=== PATIENT | male | born 1945 | race Caucasian/White ===

== ENCOUNTER → 2016-11-29 14:48 | Outpatient (CLI) | payer MEDICARE, BC | END | disposition home or self-care (01) | LOC: D.LAB 14:48 | DX: Z12.5 Encounter for screening for malignant neoplasm of prostate (principal) ==

== ENCOUNTER 2017-12-19 13:55 | Inpatient (IN) | payer MEDICARE, BC ==
[2017-12-19] VITALS (11 sets, daily range): BP systolic 120–139; BP diastolic 61–74; BMI 27.7
[~2017-12-19] VITALS: Ht 182.9 cm; Wt 93.4 kg
--- NOTE | ~2017-12-19 | OP ---
PATIENT NAME: GUS MCCONNELL MEDICAL RECORD: [id number] :[birth year] LOCATION:D.M2 D.2129 ADMISSION DATE:12/19/17 SURGEON: GABRIEL JACOB MD DATE OF OPERATION: 12/20/2017 PREOPERATIVE DIAGNOSES: 1. Incomplete left bundle-branch block. 2. Obstructive sleep apnea. 3. Hyperlipidemia. 4. BPH. 5. Depression. 6. Obesity. POSTOPERATIVE DIAGNOSES: 1. Incomplete left bundle-branch block. 2. Obstructive sleep apnea. 3. Hyperlipidemia. 4. BPH. 5. Depression. 6. Obesity. PROCEDURE: Left subclavian vein dual lead pacemaker placement. SURGEON: Gabriel Jacob MD CO-SURGEON: Oliverio Sotelo MD REPORT OF PROCEDURE: The patient's left chest was prepped and draped in sterile fashion. A 25 mL of 1% lidocaine with epinephrine were infused into the surrounding tissues. A transverse incision was made in the left upper lateral chest and a subcutaneous pouch was made over the pectoral fascia. We accessed the left subclavian vein times 2 and guidewires were advanced with ease. Fluoro was used to note that the wires were in good position in the venous system. The dilator trocar devices were placed over the wires and the wires and dilators were removed. The 2 leads were inserted into the venous system. At this point, Dr. Sotelo positioned the leads appropriately in atrium and ventricle. Once the leads were noted to be functioning appropriately, then the trocars were removed. The leads were sutured down with 0 Ti-Crons and then affixed to the pacemaker. The pacemaker was placed into the subcutaneous pouch and sutured to the pectoral fascia using interrupted 0 Ti-Cron. The wound was irrigated out with antibiotic solution. We then reapproximated the subcutaneous tissues with interrupted 3-0 Vicryls, and the skin was closed with running subcutaneous 5-0 Monocryl. COMPLICATIONS: None. CONDITION: Stable. ANESTHESIA: Local MAC. BLOOD LOSS: Minimal. TRANSINT:[id number] Voice Confirmation ID: [id number] DOCUMENT ID: [id number] OPERATIVE REPORT [id number] GUS MCCONNELL GABRIEL JACOB MD CC: [id number] DICTATION DATE: 12/20/17 141 SKILLS INSTRUCTOR: 12/20/17 1422 ADM IN [id number] [place] [address]
--- NOTE | ~2017-12-19 | OP ---
PATIENT NAME: GUS MCCONNELL MEDICAL RECORD: [id number] :49 LOCATION:D.M2 D.2129 ADMISSION DATE:12/19/17 SURGEON: RICHMOND MARSHALL MD DATE OF OPERATION: 12/20/2017 PROCEDURE: Lead portion of permanent pacemaker placement. INDICATION: A complete heart block with sinus arrest. SURGEON: Gabriel Stevenson MD DESCRIPTION OF PROCEDURE: After the left subclavian was cannulated via modified Seldinger technique via Dr. Stevenson, first under fluoroscopic guidance, I placed the RV lead in the RV apex without difficulty. After adequate R waves and thresholds were obtained, again under fluoroscopic guidance, the right atrial lead was placed in right atrial appendage without difficulty. After adequate P waves and thresholds were obtained, leads were attached to the appropriate poles of the generator and pocket was closed via Dr. Stevenson. IMPRESSION: Successful lead portion of permanent pacemaker placement. ESTIMATED BLOOD LOSS: None. COMPLICATIONS: None noted. DISPOSITION: To the floor, stable. TRANSINT:[id number] Voice Confirmation ID: [id number] DOCUMENT ID: [id number] RICHMOND MARSHALL MD at 0843 CC: [id number] DICTATION DATE: 12/20/17 1342 AIR TOOL OPERATOR: 12/20/17 1353 DIS IN 12/21/17 [id number] [place] [address]
--- NOTE | ~2017-12-19 | HEMODYNAMI ---
PATIENT:GUS MCCONNELL MEDICAL RECORD: [id number] : 49 LOCATION:[address] ADMISSION DATE: 12/19/17 Generatedon:12/20/201713:50 Patient name: GUS MCCONNELL Patient #: [id number] SSN: : 1945 Date of study: 12/20/2017 Page: Of Hemodynamic Procedure Report Patient Data Patient Demographics Procedure consent was obtained First Name: GUS Gender: Male Last Name: JAYESH : 1945 [facility] Initial: Cassius Age: 72 year(s) Patient #: [id number] Race: Unknown Additional ID: [id number] Contact details Address: [address] [place] [address] State: [place] City: [facility] Zip code: [address] Admission Admission Data Admission Date: 12/19/2017 Admission Time: 16:06 Room #: D.2129 Procedure Procedure Types Cath Procedure Diagnostic Procedure PPM/ICD PPM Dual Implant Sedation Charges Moderate Sedation up to 30 minutes Procedure Description Procedure Date Procedure Date: 12/20/2017 Procedure Start Time: 13:13 Procedure End Time: 13:48 Procedure Staff Name Function Oliverio Brennan MD Performing Physician Gabriel Stevenson MD Assisting physician Shirley King RT Monitor Dorota Ayala RT Scrub Maverick Marquez RN Nurse Procedure Data Cath Procedure Fluoroscopy Diagnostic fluoroscopy Total fluoroscopy Time: 1.5 time: 1.5 min min Diagnostic fluoroscopy Total fluoroscopy dose: dose: 45.08 mGy 45.08 mGy Contrast Material Contrast Material Type Amount (ml) Isovue 300 0 Estimated blood loss: 5 ml Procedure Complications No complications Procedure Medications Medication Administration Route Dosage Ancef (1Gm/50ml NS) I.V.P.B 1 g Ancef Irrigation Topical 1 g (1gm/500ml NS) 0.9% NaCl I.V. 100 ml/hr Versed I.V. 1 mg Fentanyl I.V. 50 mcg Versed I.V. 1 mg Fentanyl I.V. 50 mcg Hemodynamics Rest Heart Rate: 63 (bpm) Snapshots Pre Cath Intra NCS Post Cath Vital Signs Time Heart Resp SPO2 etCO2 NIBP (mmHg) Rhythm Pain Sedation Rate (ipm) (%) (mmHg) Status Level (bpm) 13:04:42 63 16 94 0 134/75(99) NSR 0 (11) 10(A) , No pain 13:08:56 64 16 90 0 132/76(102) NSR 0 (11) 10(A) , No pain 13:13:06 60 17 95 0 126/72(100) NSR 0 (11) 10(A) , No pain 13:17:16 10 16 95 0 125/62(90) NSR 0 (11) 10(A) , No pain 13:21:26 81 18 95 0 143/80(112) NSR 0 (11) 10(A) , No pain 13:25:42 78 16 95 0 148/80(110) NSR 0 (11) 10(A) , No pain 13:29:54 78 19 93 0 146/76(113) NSR 0 (11) 10(A) , No pain 13:34:10 76 16 93 0 134/79(100) NSR 0 (11) 10(A) , No pain 13:38:22 77 18 94 0 145/76(100) NSR 0 (11) 10(A) , No pain 13:42:38 72 16 95 0 141/78(105) NSR 0 (11) 10(A) , No pain 13:47:37 72 18 95 0 Measuring NSR 0 (11) 10(A) , No pain 13:47:53 71 19 95 0 143/73(107) NSR 0 (11) 10(A) , No pain Medications Time Medication Route Dose Verified Delivered Reason Notes Effective ness by by 13:12:24 Ancef I.V.P.B 1 g Oliverio Temple Per (1Gm/50ml [facility] Marco A Marquez RN physician NS) 13:12:34 Ancef Topical 1 g Oliverio Temple used for Irrigation [facility] Marco A Marquez black leather trimmer (1gm/500ml NS) 13:12:44 0.9% NaCl I.V. 100 Oliverio Temple Per ml/hr [facility] Marco A Marquez RN physician 13:12:52 Versed I.V. 1 mg Oliverio Jhaveri RN sedation 13:12:59 Fentanyl I.V. 50 Oliverio Temple for [facility] Marco A Marquez RN sedation 13:20:36 Versed I.V. 1 mg Oliverio Temple for [facility] Marquez RN sedation 13:20:41 Fentanyl I.V. 50 Oliverio Temple for [facility] Marco A Marquez RN sedation Procedure Log Time Note 12:52:02 Maverick Marquez RN sent for patient. Start room use. 12:52:02 Time tracking: Regular hours (M-F 7:00 - 5:00) 12:52:08 Plan of Care:Hemodynamics will remain stable., Cardiac rhythm will remain stable., Comfort level will be maintained., Respiratory function will remain adequate., Patient/ family verbilizes understanding of procedure., Procedure tolerated without complication., Recovers from procedure without complications.. 12:52:15 Patient received from CVICU to [facility] 3 Alert and oriented. Tansferred to table in Supine position. 12:52:16 Warm blankets applied, and abhi hugger turned on for patient comfort. 12:52:17 Correct patient and procedure confirmed by team. 12:52:18 Signed procedure consent form obtained from patient. 12:52:19 ECG and BP/O2 sat monitors applied to patient. 13:03:40 Vital chart was started 13:04:28 Baseline sample Acquired. 13:04:35 Rhythm: paced 13:04:38 Full Disclosure recording started 13:04:42 H&P Date Dictated: 12/20/2017 Within 30 days and on chart., H&P Addendum completed by physician on day of procedure. (MUST COMPLETE FOR ALL OUTPATIENTS). 13:04:43 Pre-procedure instructions explained to patient. 13:04:44 Pre-op teaching completed and patient verbalized understanding. 13:04:45 Family in waiting room. 13:04:47 Patient NPO since Midnight. 13:04:49 Is the patient allergic to Iodine/contrast media? No. 13:04:50 Was the patient premedicated? No 13:05:39 Is patient on blood thinner?No 13:05:42 Patient diabetic? No. 13:05:46 Previous problem with sedation/anesthesia? No ? 13:05:57 Snore? Yes 13:05:58 Sleep apnea? Yes 13:05:59 Deviated septum? No 13:05:59 Opens mouth fully? Yes 13:06:00 Sticks out tongue? Yes 13:06:04 Airway obstruction? No ? 13:06:07 Dentures? No ? 13:06:48 Pre procedure: right dorsailis pedis pulse 2+ Normal; easily identifiable; not easily obliterated 13:06:50 Pre procedure: left dorsailis pedis pulse 2+ Normal; easily identifiable; not easily obliterated 13:06:53 Patient pain scale 0/10 ?. 13:07:09 IV patent on arrival in left forearm with 0.9% NaCl at [facility]. 13:07:12 Lab results completed and on chart. 13:07:18 Left chest area was prepped with chlora-prep and draped in sterile fashion 13:07:20 Alarms reviewed by R. N. 13:07:20 Sharps counted by scrub and verified by R.N. 13:09:09 Physician arrived 13:09:10 --------ALL STOP TIME OUT------ 13:09:10 Final Timeout: patient, procedure, and site verified with staff and physician. All members of the team are in agreement. 13:09:18 Left chest site verified by team. 13:09:22 Physical assessment completed. ASA score P 2 - A patient with mild systemic disease as per Oliverio Brennan MD. 13:09:25 Sedation plan: IV Moderate Sedation Medication:Versed, Fentanyl 13:09:38 Use device set NIDIA PPM 13:09:41 Immobilizer Extra Large opened to sterile field. 13:09:42 Mepilex Dressing (383410) opened to sterile field. 13:09:43 Cautery Pushbutton Pencil opened to sterile field. 13:09:44 Cautery Tip Cotton Tipper opened to sterile field. 13:09:45 5-0 Monocryl PS2 [id number] opened to sterile field. 13:09:48 3-0 Vicryl Single Pack [id number] opened to sterile field. 13:09:49 2-0 Ticron Multipack ([id number]) opened to sterile field. 13:10:44 Procedure started. 13:12:24 Ancef (1Gm/50ml NS) 1 g I.V.P.B was administered by Maverick Marquez RN; Per physician; 13:12:34 Ancef Irrigation (1gm/500ml NS) 1 g Topical was administered by Maverick Marquez RN; used for procedure; 13:12:44 0.9% NaCl 100 ml/hr I.V. was administered by Maverick Marquez RN; Per physician; 13:12:44 [employer]tronic hospital sales representative Jayy Garcia present for procedure. 13:12:52 Versed 1 mg I.V. was administered by Maverick Marquez RN; for sedation; 13:12:58 Pre sharps counted by scrub and verified by RN: Sutures: 14; Sponges: 5; Stick needles: 2; Skin needles: 2; Blade: 1; Cautery: 1 13:12:59 Fentanyl 50 mcg I.V. was administered by Maverick Marquez RN; for sedation; 13:13:02 Grounding pad site Left thigh. 13:13:04 Grounding pad site free from injury. 13:13:09 Lidocaine 1% w/epi was administered to left subclavicular area by Gabriel Stevenson MD . 13:13:12 Incision made to left subclavicular area. 13:19:04 Generator pocket made/opened. 13:20:36 Versed 1 mg I.V. was administered by Maverick Marquez RN; for sedation; 13:20:41 Fentanyl 50 mcg I.V. was administered by Maverick Marquez RN; for sedation; 13:21:43 Left subclavian vein accessed with 7Fr Peel Away Sheath. 13:29:50 Ventricular lead inserted and advanced. 13:29:56 Left subclavian vein accessed with 7Fr Peel Away Sheath. 13:30:05 Atrial lead inserted and advanced. 13:30:23 Ventricular lead positioned. 13:30:28 Atrial lead positioned. 13:34:29 Peel-a-way sheath was split and removed. 13:34:29 Peel-a-way sheath was split and removed. 13:34:38 Ventricular lead attachment was completed with 2-0 ticron. 13:34:40 Atrial lead attachment was completed with 2-0 ticron. 13:38:25 Temporary pacer turn off 13:38:26 Temporary pacer removed 13:38:35 PPM Dual was attached to lead(s) and inserted into pocket. 13:39:20 Generator was sutured in place with 2-0 ticron. 13:39:26 Device pocket was irrigated with Ancef. 13:41:01 Subcutaneous closure was completed with 3-0 vicryl plus. 13:41:29 Medtronic Advisa MRI PPM Dual Generator [id number] opened to sterile field. 13:42:25 Medtronic 4574-45 PPM Lead opened to sterile field. 13:43:04 Medtronic 4074-58 PPM Lead opened to sterile field. 13:44:28 Skin closure was completed with 5-0 monocryl. 13:45:18 Parameters-- Generator: Mode: DDDR. Lower Rate: 60bpm. Upper Rate: 130bpm. 13:45:42 Parameters--Ventricular P/R Wave: 22mV. Current: 0.1mA; Threshold: 0.2V; Impedence: 1270OHMS. 13:46:05 Parameters--Atrial P/R Wave: 2.0mV. Current: 0.3mA; Threshold: 0.3V; Impedence: 823OHMS. 13:46:17 Lt Chest incision was dressed with Mepilex dressing. 13:46:22 Procedure ended.(Physican Out) 13:46:38 Fluoroscopy time 01.50 minutes. 13:46:48 Fluoroscopy dose: 45.08 mGy 13:46:48 Flurop Dose total: 45.08 13:46:51 Contrast amount:Isovue 300 0ml. 13:46:52 Sharps counted by scrub and verified by R.N. 13:46:57 Insertion/operative site no bleeding no hematoma. 13:47:04 Post left subclavian vein:stable 13:47:10 Post procedure rhythm: paced 13:47:12 Estimated blood loss: 5 ml 13:47:14 Post procedure instruction explained to patient.Patient verbalizes understanding. 13:47:14 Patient needs reinforcement of post procedure teaching. 13:47:34 Procedure type changed to Cath procedure, Diagnostic procedure, PPM/ICD, PPM Dual Implant, Sedation Charges, Moderate Sedation up to 30 minutes 13:47:35 Procedure and supply charges have been captured, reviewed, submitted and are correct. 13:47:41 Procedure Complication : No complications 13:47:43 Vital chart was stopped 13:47:43 See physician's report for complete and final results. 13:47:53 Report given to Med II. 13:48:00 Patient transfered to Med II with Stretcher. 13:48:02 Procedure ended. 13:48:02 Full Disclosure recording stopped 13:48:06 End room use (Document Last) Device Usage Item Name Manufacture Quantity Catalog Hospital Part Current Minimal Lot# / Serial# Number Charge Number Stock Stock Code Immobilizer Cardinal 1 [id number] [id number] 5 Extra Large Health Mepilex Cardinal 1 [id number] 770605 [id number] [id number] 5 Dressing Health (173993) Cautery Microtek 1 [id number] 821220 54073 [id number] 5 Pushbutton [employer] Pencil Cautery Tip Microtek 1 [id number] 667759 098070 778361 5 Cotton Tipper [employer] Inc. 5-0 Monocryl Ethicon 1 [id number] [id number] 012624 [id number] 5 PS2 Y495G 3-0 Vicryl Ethicon 1 [id number] 266075 684209 5 Single Pack [id number] 2-0 Ticron Ethicon 2 [id number] [id number] 42622 [id number] 5 Multipack ([id number]) Medtronic Medtronic 1 [id number] 709683 [id number] 5 [id number] Advisa MRI [id number] PPM Dual Generator [id number] Medtronic Medtronic 1 4574-45 012676 [id number] 5 [id number] EXP 4574-45 PPM Lead Medtronic Medtronic 1 4074-58 818484 516041 5 [id number] EXP 4074-58 PPM 08-05-2019 Lead Signature Audit Dierks Stage Time Signature Unsigned Intra-Procedure 12/20/2017 Shirley King 1:50:10 PM RT(R) Signatures Monitor : Shirley King RT Signature : Date : Time : [id number] [place] [id number]
--- NOTE | ~2017-12-19 | HEMODYNAMI ---
PATIENT:GUS MCCONNELL MEDICAL RECORD: [id number] : 49 LOCATION:[facility] ADMISSION DATE: 12/19/17 Generatedon:12/19/201715:12 Patient name: GUS MCCONNELL Patient #: [id number] SSN: : 1945 Date of study: 12/19/2017 Page: Of Hemodynamic Procedure Report Patient Data Patient Demographics Procedure consent was obtained First Name: GUS Gender: Male Last Name: JAYESH : 1945 Middle Initial: G Age: 72 year(s) Patient #: [id number] Race: Unknown Additional ID: [id number] Contact details Address: [address] [place] [address] State: [place] City: [facility] Zip code: [address] Admission Admission Data Admission Date: 12/19/2017 Admission Time: 13:55 Procedure Procedure Types Cath Procedure Diagnostic Procedure LHC LHC w/Coronaries Aortic Root Angiography Temporary Pacemaker Procedure Description Procedure Date Procedure Date: 12/19/2017 Procedure Start Time: 14:51 Procedure End Time: 15:11 Procedure Staff Name Function Luis Miguel Reyes MD Performing Physician Dorota Ayala RT Monitor Jacob Castillo RN Nurse Shirley King RT Scrub Darrel Moore RN Abrasive Grinder Honorio Roberts RT Abrasive Grinder Procedure Data Cath Procedure Fluoroscopy Diagnostic fluoroscopy Total fluoroscopy Time: 3.8 time: 3.8 min min Diagnostic fluoroscopy Total fluoroscopy dose: 492 dose: 492 mGy mGy Contrast Material Contrast Material Type Amount (ml) Isovue 300 98 Entry Location Entry Primary Successful Side Size Upsize Upsize Entry Closure Succes sful Closure Location (Fr) 1 (Fr) 2 (Fr) Remarks Device Remarks Femoral Right 5 Fr Exoseal artery Femoral Right 6 Fr Sheath vein Short sutured in place Estimated blood loss: 10 ml Diagnostic catheters Device Type Used For End Catheter Placement MULTIPACK JL 4.0 5Fr Procedure catheter MULTIPACK 3DRC 5Fr Procedure catheter MULTIPACK Pigtail 5 Fr Ventriculography catheter Procedure Complications No complications Procedure Medications Medication Administration Route Dosage Oxygen etCO2 Nasal cannula 2 l/min Lidocaine 2% added to field 20 Heparin Flush Bag added to field 2 bags (1000units/500ml NS) 0.9% NaCl I.V. 100 ml/hr Versed I.V. 1 mg Fentanyl I.V. 50 mcg Fentanyl I.V. 50 mcg Versed I.V. 1 mg Hemodynamics Rest Heart Rate: 95 (bpm) Pressure Samples Time Site Value (mmHg) Purpose Heart Use Rate(bpm) 15:00 LV 146/4,19 Snapshot 97 15:01 AO 148/82(109) Pullback 97 15:01 LV 145/2,22 Pullback 97 Gradients Valve Time Site 1 Site 2 Mean SEP/DFP Peak To Heart Use (mmHg) (sec/min) Peak Rate (mmHg) (bpm) Aortic 15:01 LV AO 0 10 0 97 145/2,22 148/82(109) Calculations Valve P-P Mean Valve Index Valve Source Name Gradient Area Flow (cm2) Aortic 0 0 0 0 Snapshots Pre Cath Intra NCS Post Cath Vital Signs Time Heart Resp SPO2 etCO2 NIBP (mmHg) Rhythm Pain Sedation Rate (ipm) (%) (mmHg) Status Level (bpm) 14:47:20 88 19 96 23.2 137/79(100) NSR 0 (11) 10(A) , No pain 14:52:00 91 14 95 32.2 110/71(87) NSR 0 (11) 10(A) , No pain 14:56:43 88 10 94 29.2 126/68(95) NSR 0 (11) 9(A) , No pain 15:01:30 97 18 95 28.5 130/74(95) NSR 0 (11) 9(A) , No pain 15:06:10 91 16 95 26.2 98/59(74) NSR 0 (11) 9(A) , No pain 15:11:09 98 16 95 32.2 Measuring NSR 0 (11) 9(A) , No pain 15:11:24 97 15 95 33 126/78(93) NSR 0 (11) 9(A) , No pain Medications Time Medication Route Dose Verified Delivered Reason Notes Eff ectiveness by by 14:45:45 Oxygen etCO2 2 Luis Miguel Buffie used for Nasal l/min Eric Moore warehouse operations manager cannula 14:45:57 Lidocaine 2% added 20ml Luis Miguel Luis Miguel for local to vial Eric Reyes MD anesthetic field 14:46:04 Heparin Flush added 2 Luis Miguel Luis Miguel used for Bag to bags Eric Reyes MD procedure (1000units/500ml field NS) 14:46:17 0.9% NaCl I.V. 100 Luis Miguel Jacob Per ml/hr Eric Castillo physician RN 14:50:59 Versed I.V. 1 mg Luis Miguel Jacob for Eric Castillo sedation RN 14:51:08 Fentanyl I.V. 50 Luis Miguel Jacob for mcg Eric Castillo sedation RN 14:52:02 Fentanyl I.V. 50 Luis Miguel Jacob for mcg Eric Castillo sedation RN 15:03:30 Versed I.V. 1 mg Luis Miguel Jacob for Eric Castillo sedation food photographer Log Time Note 14:30:31 Honorio Roberts RT(R) sent for patient. Start room use. 14:30:32 Time tracking: Regular hours (M-F 7:00 - 5:00) 14:30:36 Plan of Care:Hemodynamics will remain stable., Cardiac rhythm will remain stable., Comfort level will be maintained., Respiratory function will remain adequate., Patient/ family verbilizes understanding of procedure., Procedure tolerated without complication., Recovers from procedure without complications.. 14:37:05 Patient arrives emergently. 14:37:13 Patient received from ED to CCL 1 Alert and oriented. Tansferred to table in Supine position. 14:37:15 Warm blankets applied, and abhi hugger turned on for patient comfort. 14:37:16 Correct patient and procedure confirmed by team. 14:37:19 Signed procedure consent form obtained from patient. 14:42:08 ECG and BP/O2 sat monitors applied to patient. 14:42:12 Vital chart was started 14:42:14 Baseline sample Acquired. 14:42:19 Rhythm: paced 14:43:17 Full Disclosure recording started 14:43:23 H&P Date Dictated: 12/19/2017 ER History on chart.. 14:43:31 Pre-procedure instructions explained to patient. 14:43:32 Pre-op teaching completed and patient verbalized understanding. 14:43:39 Family in waiting room. 14:44:03 Patient NPO since Lunch. 14:44:26 allergy to novacain 14:44:50 Is the patient allergic to Iodine/contrast media? No. 14:45:03 Is patient on blood thinner?No 14:45:05 Patient diabetic? No. 14:45:09 ----Pre-sedation anethsthesia assessment.---- 14:45:12 Previous problem with sedation/anesthesia? No ? 14:45:14 Snore? Yes 14:45:16 Sleep apnea? Yes 14:45:17 Deviated septum? No 14:45:18 Opens mouth fully? Yes 14:45:20 Sticks out tongue? Yes 14:45:23 Airway obstruction? No ? 14:45:27 Dentures? No ? 14:45:45 Oxygen 2 l/min etCO2 Nasal cannula was administered by Darrel Moore RN; used for procedure; 14:45:56 IV patent on arrival in left antecubital with 0.45%NaCl at [facility]. 14:45:57 Lidocaine 2% 20ml vial added to field was administered by Luis Miguel Reyes MD; for local anesthetic; 14:46:04 Heparin Flush Bag (1000units/500ml NS) 2 bags added to field was administered by Luis Miguel Reyes MD; used for procedure; 14:46:17 0.9% NaCl 100 ml/hr I.V. was administered by Jacob Castillo RN; Per physician; 14:46:50 Right groin area was prepped with chlora-prep and draped in sterile fashion 14:46:52 Alarms reviewed by R. N. 14:46:53 Sharps counted by scrub and verified by R.N. 14:47:26 Physician arrived 14:47:27 --------ALL STOP TIME OUT------ 14:47:28 Final Timeout: patient, procedure, and site verified with staff and physician. All members of the team are in agreement. 14:47:30 Right groin site verified by team. 14:47:34 Physical assessment completed. ASA score P 2 - A patient with mild systemic disease as per Luis Miguel Reyes MD. 14:47:37 Sedation plan: IV Moderate Sedation Medication:Versed, Fentanyl 14:49:06 Use device set Femoral Dx 14:50:30 ACIST Syringe (75894) opened to sterile field. 14:50:31 Bag Decanter () opened to sterile field. 14:50:32 Medline Cath Pack ([id number]) opened to sterile field. 14:50:33 DIAGNOSTIC WIRE .035 260cm J wire ([id number]) opened to sterile field. 14:50:34 ACIST Hand Control (15629) opened to sterile field. 14:50:34 ACIST Manifold (53772) opened to sterile field. 14:50:36 DIAGNOSTIC Multipack 5Fr catheter set ([id number]) opened to sterile field. 14:50:40 Tegaderm 4 x 4 (1626W) opened to sterile field. 14:50:42 PERCUTANEOUS ENTRY 19GA needle opened to sterile field. 14:50:54 SHEATH Prelude 5Fr 0.035 (NVK-1D-67-035) opened to sterile field. 14:50:59 Versed 1 mg I.V. was administered by Jacob Castillo RN; for sedation; 14:51:08 Fentanyl 50 mcg I.V. was administered by Jacob Castillo RN; for sedation; 14:51:16 Procedure started. 14:51:38 Local anesthetic to right femoral artery with Lidocaine 2% by Luis Miguel eRyes MD.INITIAL ACCESS ONLY 14:52:02 Fentanyl 50 mcg I.V. was administered by Jacob Castillo RN; for sedation; 14:52:20 A 5 Fr sheath was inserted into the Right Femoral artery 14:53:20 A MULTIPACK JL 4.0 5Fr catheter was advanced over the wire and used for Procedure. 14:53:25 LCA angiography performed. 14:56:50 Catheter removed. 14:57:00 A MULTIPACK 3DRC 5Fr catheter was advanced over the wire and used for Procedure. 14:57:03 RCA angiography performed. 14:58:28 Catheter removed. 14:58:41 A MULTIPACK Pigtail 5 Fr catheter was advanced over the wire and used for Ventriculography. 14:59:22 LV gram done using [facility] 15:00:40 EF : 55 % 15:01:17 Aortic Root visualized 15:01:46 Catheter removed. 15:03:30 Versed 1 mg I.V. was administered by Jacob Castillo RN; for sedation; 15:03:43 Local anesthetic to right femoral vein with Lidocaine 2% by Luis Miguel Reyes MD.ADDITIONAL ACCESS 15:04:05 A 6 Fr Short sheath was inserted into the Right Femoral vein 15:04:46 Temporary pacer inserted 15:05:11 SHEATH Prelude 6Fr 0.035 (OPY-0O-20-035) opened to sterile field. 15:05:25 Temporary pacer inserted 15:06:02 5Fr J Tip Temporary Pacing Catheter ([id number]) opened to sterile field. 15:06:21 Temporary pacer turned on with the following settings: Rate 60, MA 3, Mode: Demand. 15:07:16 Sheath removed intact; hemostasis achieved with Exoseal to the Right Femoral artery. 15:07:29 Sheath removed intact; hemostasis achieved with Sheath sutured in place to the Right Femoral vein. 15:07:43 Procedure ended.(Physican Out) 15:07:54 Fluoroscopy time 03.80 minutes. 15:07:59 Fluoroscopy dose: 492 mGy 15:07:59 Flurop Dose total: 492 15:08:11 Contrast amount:Isovue 300 98ml. 15:08:13 Sharps counted by scrub and verified by R.N. 15:08:54 Insertion/operative site no bleeding no hematoma. 15:08:57 Post Procedure Pulses reassessed and unchanged 15:09:01 Post-procedure physical assessment completed. ASA score P 2 - A patient with mild systemic disease as per Luis Miguel Reyes MD. 15:09:05 Post procedure rhythm: sinus rhythm 15:09:08 Estimated blood loss: 10 ml 15:09:25 Post procedure instruction explained to patient.Patient verbalizes understanding. 15:10:38 Procedure type changed to Cath procedure, Diagnostic procedure, LHC, LHC w/Coronaries, Aortic Root Angiography, Temporary Pacemaker 15:11:36 Procedure Complication : No complications 15:11:39 Vital chart was stopped 15:11:40 See physician's report for complete and final results. 15:11:42 Report given to Pre/Post Procedure Room. 15:11:46 Patient transfered to Pre/Post Procedure Room with Stretcher. 15:11:49 Procedure ended. 15:11:49 Full Disclosure recording stopped 15:11:55 End room use (Document Last) Device Usage Item Name Manufacture Quantity Catalog Number Hospital Part Current Minimal Lot# / Charge Number Stock Stock Serial# Code ACIST Syringe Acist 1 [id number] [id number] 20 (30088) [employer] Bag Decanter Microtek 1 2001S 847768 35383 219565 5 (2001S) [employer] Medline Cath Cardinal 1 [id number] 085634 [address] [facility] Health ([id number]) DIAGNOSTIC WIRE [facility] [place] 1 [id number] 712085 038862 584762 30 .035 260cm J wire (263299) ACIST Hand Acist 1 43607 543039 534238 040212 5 Control (50936) [employer] ACIST Manifold Acist 1 06536 325585 602135 521458 5 (76045) [employer] DIAGNOSTIC Cardinal 1 [id number] 281473 33734 987830 30 Multipack 5Fr Health catheter set ([id number]) Tegaderm 4 x 4 3M 1 1626W 127173 627442 743538 5 (1626W) PERCUTANEOUS [employer] 1 [id number] 732259 683733 5 ENTRY 19GA needle SHEATH Prelude Merit 1 [id number] 404064 023727 312028 5 5Fr 0.035 Medical (XTY-1V-79-035) MULTIPACK JL Cardinal 1 [id number] 5 4.0 5Fr Health catheter MULTIPACK 3DRC Cardinal 1 [id number] 5 5Fr catheter Health MULTIPACK Cardinal 1 746889 5 Pigtail 5 Fr Health catheter SHEATH Prelude Merit 1 [id number] 513471 2484340 019015 5 6Fr 0.035 Medical (AIW-3D-54-035) 5Fr J Tip Guan 1 [id number] 237341 20624 462538 2 Temporary [employer] Pacing Catheter ([id number]) Signature Audit [place] Stage Time Signature Unsigned Intra-Procedure 12/19/2017 Dorota Ayala 3:12:25 PM RT(R) Signatures Monitor : Dorota Ayala Signature : RT Date : Time : [facility] [address] [place] [address]
[2017-12-19] MEDS ORDERED: CYMBALTA20 MG PO (14:02)
[2017-12-19] MEDS ORDERED: PRAVACHOL20 MG PO (14:03)
[2017-12-19 14:33] LABS: ALBUMIN 3.7 g/dL (3.4-5.0); ANION GAP 19.6 mmol/L (8-16); BILIRUBIN - TOTAL 0.37 mg/dL (0.2-1.3); CALCIUM 8.5 mg/dL (8.5-10.1); CARBON DIOXIDE 23.7 mmol/L (21.0-32.0); CREATININE - SERUM 1.2 mg/dL (0.6-1.3); POTASSIUM - SERUM 4.3 mmol/L (3.5-5.1); PROTEIN - SERUM 7.3 g/dL (6.4-8.2)
[2017-12-19 14:38] LABS: APTT 24.7 SECONDS (22.8-39.4); INR 1.08 (0.85-1.17); PROTIME 13.6 SECONDS (11.6-15.0)
[2017-12-19 14:39] LABS: D-DIMER-QUANTITATIVE 0.29 ug/mLFEU (0.20-0.54)
[2017-12-19 14:40] LABS: BASOPHILS 0.5 % (0-2); HEMATOCRIT 46.6 % (42.0-54.0); HEMOGLOBIN 15.8 g/dL (13.5-17.5); IMMATURE GRANULOCYTES 0.1 % (0-5); LYMPHOCYTES 31.5 % (15-50); MCH 31.5 pg (26.0-34.0); MCHC 33.9 g/dL (31.0-37.0); MCV 92.8 fL (80.0-100.0); MEAN PLATELET VOLUME 8.8 fL (7.4-10.4); MONOCYTES 7.1 % (2-11); NEUTROPHILS 57.8 % (40-80); PLATELET COUNT 257 10x3/uL (130-400); RBC 5.02 10x6/uL (4.20-6.10); RDW 13.9 % (11.5-14.5); WBC 8.8 10x3/uL (4.8-10.8)
[2017-12-19 14:41] LABS: MAGNESIUM - SERUM 1.9 mg/dL (1.8-2.4)
[2017-12-19] MEDS ORDERED: CYMBALTA60 MG PO (17:10)
[2017-12-19] MEDS ORDERED: LIPITOR10 MG PO (17:11)
[2017-12-19] MEDS ORDERED: FLOMAX0.4 MG PO (17:11)
[2017-12-19 21:48] LABS: APPEARANCE CLEAR (CLEAR); BILIRUBIN NEGATIVE (NEGATIVE); COLOR YELLOW (YELLOW); GLUCOSE NEGATIVE (NEGATIVE); KETONE NEGATIVE (NEGATIVE); NITRITE NEGATIVE (NEGATIVE); PROTEIN NEGATIVE (NEGATIVE); RED CELLS - URINE 0-5 /hpf (0-5); UROBILINOGEN NORMAL (NORMAL); WHITE CELLS - URINE OCC /hpf (0-5)
[2017-12-20] VITALS (11 sets, daily range): BP systolic 100–145; BP diastolic 61–80; Ht 182.9 cm; Wt 93.4 kg
[2017-12-20 04:49] LABS: BASOPHILS 0.2 % (0-2); EOSINOPHILS 1.4 % (0-7); HEMATOCRIT 44.8 % (42.0-54.0); HEMOGLOBIN 15.1 g/dL (13.5-17.5); IMMATURE GRANULOCYTES 0.1 % (0-5); LYMPHOCYTES 18.9 % (15-50); MCH 31.4 pg (26.0-34.0); MCHC 33.7 g/dL (31.0-37.0); MCV 93.1 fL (80.0-100.0); MEAN PLATELET VOLUME 8.8 fL (7.4-10.4); MONOCYTES 7.5 % (2-11); NEUTROPHILS 71.9 % (40-80); PLATELET COUNT 255 10x3/uL (130-400); RBC 4.81 10x6/uL (4.20-6.10); RDW 13.8 % (11.5-14.5); WBC 8.1 10x3/uL (4.8-10.8)
[2017-12-20 05:02] LABS: CALC OSMOLALITY 276 mosm/kg (275-300); CALCIUM 8.4 mg/dL (8.5-10.1); CARBON DIOXIDE 29.2 mmol/L (21.0-32.0); CHLORIDE - SERUM 104 mmol/L (98-107); POTASSIUM - SERUM 4.4 mmol/L (3.5-5.1); SODIUM 138 mmol/L (136-145); UREA NITROGEN 14 mg/dL (7-18); eGFR NON AFRICAN AMERICAN 78 mL/min (90-120)
[2017-12-20 05:11] LABS: GLUCOSE 102 mg/dL (74-106)
[2017-12-20 11:46] LABS: T4 THYROXIN - FREE 0.72 ng/dL (0.76-1.46); THYROID STIMULATING HORMONE 1.74 uIU/mL (0.36-3.74)
[2017-12-21 00:44] VITALS: BP 116/75
[2017-12-21 04:00] VITALS: BP 131/84
[2017-12-21 06:38] LABS: BASOPHILS 0.4 % (0-2); CALC OSMOLALITY 276 mosm/kg (275-300); CALCIUM 8.3 mg/dL (8.5-10.1); CHLORIDE - SERUM 103 mmol/L (98-107); CREATININE - SERUM 0.9 mg/dL (0.6-1.3); EOSINOPHILS 1.9 % (0-7); GLUCOSE 104 mg/dL (74-106); HEMOGLOBIN 15.3 g/dL (13.5-17.5); IMMATURE GRANULOCYTES 0.1 % (0-5); LYMPHOCYTES 18.9 % (15-50); MCH 31.4 pg (26.0-34.0); MCV 92.4 fL (80.0-100.0); MEAN PLATELET VOLUME 8.9 fL (7.4-10.4); MONOCYTES 10.4 % (2-11); NEUTROPHILS 68.3 % (40-80); PLATELET COUNT 249 10x3/uL (130-400); POTASSIUM - SERUM 4.2 mmol/L (3.5-5.1); RBC 4.87 10x6/uL (4.20-6.10); RDW 13.9 % (11.5-14.5); SODIUM 138 mmol/L (136-145); UREA NITROGEN 16 mg/dL (7-18); WBC 8.4 10x3/uL (4.8-10.8); eGFR NON AFRICAN AMERICAN 89 mL/min (90-120)
[2017-12-21 07:55] VITALS: BP 119/77
[2017-12-21 11:28] VITALS: BP 117/68
[2017-12-21] MEDS ORDERED: PROTONIX40 MG PO (12:57)
== END 2017-12-21 15:46 | disposition home or self-care (01) | DRG 244 ==
LOC: D.ER 13:55 → D.CATH 13:55 → EDSTATUS 14:34 → D.M2 16:06 → D.CVICU 16:06 → D.M2 12-20 12:54
PROVIDERS: Family Medicine; Internal Medicine Cardiovascular Disease; Internal Medicine Nephrology
PROC: 4A023N7 Measurement of Cardiac Sampling and Pressure, Left Heart, Percutaneous Approach (ICD-10-PCS; 2017-12-19)
PROC: B2151ZZ Fluoroscopy of Left Heart using Low Osmolar Contrast (ICD-10-PCS; 2017-12-19)
PROC: 5A1223Z Performance of Cardiac Pacing, Continuous (ICD-10-PCS; 2017-12-19)
PROC: B2111ZZ Fluoroscopy of Multiple Coronary Arteries using Low Osmolar Contrast (ICD-10-PCS; principal; 2017-12-19 14:30)
PROC: 0JH606Z Insertion of Pacemaker, Dual Chamber into Chest Subcutaneous Tissue and Fascia, Open Approach (ICD-10-PCS; 2017-12-20)
PROC: 02H63JZ Insertion of Pacemaker Lead into Right Atrium, Percutaneous Approach (ICD-10-PCS; 2017-12-20)
PROC: 02HK3JZ Insertion of Pacemaker Lead into Right Ventricle, Percutaneous Approach (ICD-10-PCS; 2017-12-20)
DX: I44.7 Left bundle-branch block, unspecified (principal); R00.1 Bradycardia, unspecified; R55 Syncope and collapse; G47.33 Obstructive sleep apnea (adult) (pediatric); E78.5 Hyperlipidemia, unspecified; N40.0 Benign prostatic hyperplasia without lower urinary tract symptoms; F32.9 Major depressive disorder, single episode, unspecified; E66.9 Obesity, unspecified; Z68.27 Body mass index [BMI] 27.0-27.9, adult

== ENCOUNTER 2018-02-02 10:45 | Outpatient (CLI) | payer MEDICARE, BC ==
[~2018-02-02] VITALS: Ht 182.9 cm; Wt 92.7 kg
--- NOTE | ~2018-02-02 | HEMODYNAMI ---
PATIENT:GUS MCCONNELL MEDICAL RECORD: [id number] : 49 LOCATION:[facility] ADMISSION DATE: 02/02/18 Generatedon:02/02/201814:26 Patient name: GUS MCCONNELL Patient #: [id number] SSN: : 1945 Date of study: 02/02/2018 Page: Of Hemodynamic Procedure Report Patient Data Patient Demographics Procedure consent was obtained First Name: GUS Gender: Male Last Name: JAYESH : 1945 [facility] Initial: Cassius Age: 72 year(s) Patient #: [id number] Race: Unknown Additional ID: [id number] Contact details Address: [address] [place] [address] State: [place] City: [facility] Zip code: [address] Past Medical History Allergies Allergen Reaction Date Comments Reported Other allergy 02/02/2018 NOVOCAIN Admission Admission Data Admission Date: 02/02/2018 Admission Time: 10:45 Lab Results Lab Result Date: 02/02/2018 Lab Result Time: 11:29 Biochemistry Name Units Result Min Max BUN mg/dl 12 --(-*--)-- 7 18 Creatinine mg/dl 0.9 --(-*--)-- 0.6 1.3 CBC Name Units Result Min Max Hematocrit % 46.6 --(-*--)-- 42 54 Hemoglobin g/dl 15.9 --(--*-)-- 13.5 17.5 Procedure Procedure Types Cath Procedure Diagnostic Procedure PPM/ICD Permanent Pacer Lead Replace.. Sedation Charges Moderate Sedation up to 45 minutes Procedure Description Procedure Date Procedure Date: 02/02/2018 Procedure Start Time: 13:31 Procedure End Time: 14:20 Procedure Staff Name Function Honorio Roberts RT Scrub Darrel Moore RN Nurse Gabriel Stevenson MD Assisting physician Oliverio Brennan MD Performing Physician Juan Jose Zhao RT Monitor Procedure Data Cath Procedure Fluoroscopy Diagnostic fluoroscopy Total fluoroscopy Time: 2 time: 2 min min Diagnostic fluoroscopy Total fluoroscopy dose: dose: 26.33 mGy 26.33 mGy Contrast Material Contrast Material Type Amount (ml) Isovue 300 0 Estimated blood loss: 5 ml Procedure Complications No complications Procedure Medications Medication Administration Route Dosage Oxygen etCO2 Nasal cannula 2 l/min Lidocaine 1% added to field 20 Ancef (1Gm/50ml NS) I.V.P.B 1 g Ancef Irrigation Topical 1 g (1gm/500ml NS) Versed I.V. 2 mg Fentanyl I.V. 100 mcg Versed I.V. 1 mg Fentanyl I.V. 50 mcg Versed I.V. 1 mg Fentanyl I.V. 50 mcg Hemodynamics Rest HGB: 15.9 (g/dl) Heart Rate: 79 (bpm) Snapshots Pre Cath Intra NCS Post Cath Vital Signs Time Heart Resp SPO2 etCO2 NIBP (mmHg) Rhythm Pain Sedation Rate (ipm) (%) (mmHg) Status Level (bpm) 13:09:56 101 16 94 33.6 151/103(128) NSR 0 (11) 10(A) , No pain 13:14:14 71 14 93 37.3 151/88(128) NSR 0 (11) 10(A) , No pain 13:18:30 75 12 94 38 151/89(114) NSR 0 (11) 10(A) , No pain 13:22:51 64 13 92 38.8 148/82(110) NSR 0 (11) 10(A) , No pain 13:27:09 63 13 94 43.3 148/88(125) NSR 0 (11) 9(A) , No pain 13:31:27 71 13 94 37.3 152/86(129) NSR 0 (11) 9(A) , No pain 13:35:45 96 14 94 36.5 149/95(119) NSR 0 (11) 9(A) , No pain 13:40:03 139 13 93 41 151/90(124) NSR 0 (11) 9(A) , No pain 13:44:17 80 13 93 39.5 147/85(120) NSR 0 (11) 10(A) , No pain 13:48:35 79 12 94 40.2 149/92(119) NSR 0 (11) 10(A) , No pain 13:52:51 66 14 95 40.2 151/87(118) NSR 0 (11) 10(A) , No pain 13:57:09 66 12 96 40.2 147/90(114) NSR 0 (11) 10(A) , No pain 14:01:25 67 14 96 39.5 149/90(114) NSR 0 (11) 10(A) , No pain 14:05:41 69 13 96 37.2 142/89(103) NSR 0 (11) 10(A) , No pain 14:09:59 67 15 95 41 152/85(120) NSR 0 (11) 10(A) , No pain 14:14:13 100 14 96 40.2 148/99(124) NSR 0 (11) 10(A) , No pain 14:18:29 71 13 97 39.5 144/89(117) NSR 0 (11) 10(A) , No pain Medications Time Medication Route Dose Verified Delivered Reason Notes Effectiv eness by by 13:03:36 Oxygen etCO2 2 Oliverio Raineyie used for Nasal l/min Mika Moore general passenger agent cannula 13:03:47 Lidocaine added 20ml Oliverio Juarezian for local 1% to vial St Marco A Stevenson MD anesthetic field 13:08:38 Ancef I.V.P.B 1 g Oliverio Raineyie Per (1Gm/50ml St Strickland Moore RN physician NS) 13:17:07 Ancef Topical 1 g Oliverio Raineyie used for Irrigation Mika Moore general passenger agent (1gm/500ml NS) 13:20:27 Versed I.V. 2 mg Oliverio Rojo for Mika Moore RN sedation 13:20:36 Fentanyl I.V. 100 [place] [facility] [place] sedation 13:30:46 Versed I.V. 1 mg Oliverio Raineyie for Mika Moore RN sedation 13:30:50 Fentanyl I.V. 50 [place]eyie [place] [facility] [place]ika [place] RN sedation 14:06:01 Versed I.V. 1 mg Oliverio Raineyie for Mika Moore RN sedation 14:06:06 Fentanyl I.V. 50 Oliverio Raineyie [place] [facility] [place]ika Moore RN sedation Procedure Log Time Note 12:30:25 Darrel Moore RN sent for patient. Start room use. 12:34:48 Time tracking: Regular hours (M-F 7:00 - 5:00) 12:35:15 Plan of Care:Hemodynamics will remain stable., Cardiac rhythm will remain stable., Comfort level will be maintained., Respiratory function will remain adequate., Patient/ family verbilizes understanding of procedure., Procedure tolerated without complication., Recovers from procedure without complications.. 12:49:43 Patient received from Pre/Post Procedure Room to [facility] 3 Alert and oriented. Tansferred to table in Supine position. 12:49:44 Warm blankets applied, and abhi hugger turned on for patient comfort. 12:49:45 Correct patient and procedure confirmed by team. 12:49:46 ECG and BP/O2 sat monitors applied to patient. 12:49:46 Signed procedure consent form obtained from patient. 13:03:36 Oxygen 2 l/min etCO2 Nasal cannula was administered by Darrel Moore RN; used for procedure; 13:03:47 Lidocaine 1% 20ml vial added to field was administered by Gabriel Stevenson MD; for local anesthetic; 13:08:38 Ancef (1Gm/50ml NS) 1 g I.V.P.B was administered by Darrel Moore RN; Per physician; 13:08:44 Vital chart was started 13:13:24 Baseline sample Acquired. 13:13:27 Rhythm: sinus rhythm , paced 13:13:29 Full Disclosure recording started 13:13:40 H&P Date Dictated: 01/23/2018 Within 30 days and on chart., H&P Addendum completed by physician on day of procedure. (MUST COMPLETE FOR ALL OUTPATIENTS). 13:13:41 Pre-op teaching completed and patient verbalized understanding. 13:13:41 Pre-procedure instructions explained to patient. 13:13:42 Family in waiting room. 13:13:43 Patient NPO since Midnight. 13:13:59 Patient allergic to Other allergyNOVOCAIN 13:14:01 Is the patient allergic to Iodine/contrast media? No. 13:14:03 Is patient on blood thinner?No 13:14:05 Patient diabetic? No. 13:14:08 Previous problem with sedation/anesthesia? No ? 13:14:09 Sleep apnea? Yes 13:14:09 Snore? Yes 13:14:10 Deviated septum? No 13:14:11 Sticks out tongue? Yes 13:14:11 Opens mouth fully? Yes 13:14:13 Airway obstruction? No ? 13:14:14 Dentures? No . 13:14:19 Patient pain scale 0/10 ?. 13:14:35 IV patent on arrival in left hand with 0.9% NaCl at [facility]. 13:14:37 Lab results completed and on chart. 13:16:09 Lab Result : Hemoglobin 15.9 g/dl 13:16:09 Lab Result : Hematocrit 46.6 % 13:16:09 Lab Result : BUN 12 mg/dl 13:16:09 Lab Result : Creatinine 0.9 mg/dl 13:16:13 Left chest area was prepped with chlora-prep and draped in sterile fashion 13:16:15 Alarms reviewed by R. N. 13:16:16 Sharps counted by scrub and verified by R.N. 13:16:29 [employer] career representative YINA CANNON present for procedure. 13:16:42 Grounding pad site Left thigh. 13:16:43 Grounding pad site free from injury. 13:17:07 Ancef Irrigation (1gm/500ml NS) 1 g Topical was administered by Darrel Moore RN; used for procedure; 13:17:12 Pre sharps counted by scrub and verified by RN: Sutures: 7; Sponges: 5; Stick needles: 0; Skin needles: 2; Blade: 1; Cautery: 1 13:17:39 --------ALL STOP TIME OUT------ 13:17:39 Physician arrived 13:17:40 Final Timeout: patient, procedure, and site verified with staff and physician. All members of the team are in agreement. 13:17:46 Left chest site verified by team. 13:17:50 Physical assessment completed. ASA score P 2 - A patient with mild systemic disease as per Oliverio Brennan MD. 13:17:53 Sedation plan: IV Moderate Sedation Medication:Versed, Fentanyl 13:20:27 Versed 2 mg I.V. was administered by Darrle Moore RN; for sedation; 13:20:36 Fentanyl 100 mcg I.V. was administered by Darrel Moore RN; for sedation; 13:30:06 Use device set NIDIA PPM 13:30:09 3-0 Vicryl Single Pack [id number] opened to sterile field. 13:30:09 2-0 Ticron Multipack ([id number]) opened to sterile field. 13:30:10 5-0 Monocryl PS2 [id number] opened to sterile field. 13:30:12 Cautery Pushbutton Pencil opened to sterile field. 13:30:12 Cautery Tip Head [employer]vertising opened to sterile field. 13:30:42 Mepilex Dressing ([id number]) opened to sterile field. 13:30:46 Versed 1 mg I.V. was administered by Darrel Moore RN; for sedation; 13:30:50 Immobilizer Large opened to sterile field. 13:30:50 Fentanyl 50 mcg I.V. was administered by Darrel Moore RN; for sedation; 13:30:57 Procedure started. 13:31:02 Lidocaine 1% was administered to left subclavicular area by Gabriel Stevenson MD . 13:31:04 Incision made to left subclavicular area. 13:31:11 Generator pocket made/opened. 13:35:39 Atrial lead attachment was completed with 2-0 ticron. 14:04:44 Ventricular lead repositioned. 14:06:01 Versed 1 mg I.V. was administered by Darrel Moore RN; for sedation; 14:06:06 Fentanyl 50 mcg I.V. was administered by Darrel Moore RN; for sedation; 14:07:22 Ventricular lead tested. 14:07:54 Ventricular lead attachment was completed with 2-0 ticron. 14:11:45 Device pocket was irrigated with Ancef. 14:11:53 Subcutaneous closure was completed with 3-0 vicryl plus. 14:13:33 Parameters-- Generator: Mode: AAIR-DDDR. Lower Rate: 60bpm. Upper Rate: 120bpm. 14:13:59 Parameters--Ventricular P/R Wave: 16mV. Current: 0.8mA; Threshold: 1.1V; Impedence: 1197OHMS. 14:14:09 Parameters--Atrial P/R Wave: 2.5mV. Current: 0.1mA; Threshold: 0.5V; Impedence: 1197OHMS. 14:14:51 Skin closure was completed with 5-0 monocryl. 14:15:01 Lt Chest incision was dressed with Mepilex dressing. 14:15:17 Procedure ended.(Physican Out) 14:17:06 Fluoroscopy time 02.00 minutes. 14:17:14 Fluoroscopy dose: 26.33 mGy 14:17:14 Flurop Dose total: 26.33 14:17:16 Contrast amount:Isovue 300 0ml. 14:17:34 Post sharps counted by scrub and verified by RN: Sutures: 7; Sponges: 5; Stick needles: 2; Skin needles: 0; Blade: 1; Cautery: 1 14:17:39 Insertion/operative site no bleeding no hematoma. 14:17:50 Post Procedure Pulses reassessed and unchanged 14:17:54 Post-procedure physical assessment completed. ASA score P 2 - A patient with mild systemic disease as per Oliverio Brennan MD. 14:18:00 Post procedure rhythm: unchanged. 14:18:26 Estimated blood loss: 5 ml 14:18:28 Post procedure instruction explained to patient.Patient verbalizes understanding. 14:18:29 Patient needs reinforcement of post procedure teaching. 14:18:45 Procedure type changed to Cath procedure, Diagnostic procedure, PPM/ICD, Permanent Pacer Lead Replace.., Sedation Charges, Moderate Sedation up to 45 minutes 14:19:43 Procedure and supply charges have been captured, reviewed, submitted and are correct. 14:19:45 Procedure Complication : No complications 14:20:34 Vital chart was stopped 14:20:35 See physician's report for complete and final results. 14:20:36 Report given to Pre/Post Procedure Room. 14:20:38 Patient transfered to Pre/Post Procedure Room with Stretcher. 14:20:45 Full Disclosure recording stopped 14:20:45 Procedure ended. 14:21:01 End room use (Document Last) 14:23:56 Mepilex Dressing ([id number]) opened to sterile field. Device Usage Item Name Manufacture Quantity Catalog Hospital Part Current Minimal Lot# / Number Charge Number Stock Stock Serial# Code 2-0 Ticron Ethicon 5 [id number] 5 Multipack ([id number]) 3-0 Vicryl Ethicon 1 [id number] 5 Single Pack [id number] 5-0 Monocryl Ethicon 1 [id number] [id number] 104416 5 PS2 Y495G Cautery Tip Microtek 1 [id number] 682964 [id number] 5 [employer] Cautery Microtek 1 [id number] [id number] [id number] 5 Push[employer] Pencil Mepilex Cardinal 2 [id number] [id number] [id number] [id number] 5 Dressing Health (749449) Immobilizer Cardinal 1 [id number] [id number] 5 Large Health Signature Audit [place] Stage Time Signature Unsigned Intra-Procedure 02/02/2018 Juan Jose Zhao 2:26:39 PM RT(R) Signatures Monitor : Juan Jose Zhao RT Signature : Date : Time : [address] [address]
--- NOTE | ~2018-02-02 | OP ---
PATIENT NAME: GUS MCCONNELL MEDICAL RECORD: [id number] :49 LOCATION:D.CAT ADMISSION DATE: SURGEON: GABRIEL JACOB MD DATE OF OPERATION: 02/02/2018 PREOPERATIVE DIAGNOSES: 1. Displaced ventricular lead. 2. Symptomatic bradycardia. 3. Obstructive sleep apnea. 4. Hyperlipidemia. POSTOPERATIVE DIAGNOSES: 1. Displaced ventricular lead. 2. Symptomatic bradycardia. 3. Obstructive sleep apnea. 4. Hyperlipidemia. PROCEDURE: Ventricular lead revision. SURGEON: Gabriel Jacob MD CO-SURGEON: Oliverio Sotelo MD REPORT OF PROCEDURE: The patient's left chest was prepped and draped in sterile fashion. A 10 mL of 1% lidocaine without epinephrine was infused into the surrounding tissues. A skin incision was made overlying the pacemaker. We dissected pacemaker out and eviscerated it through the wound. The leads were freed up from any underlying attachments. The ventricular lead was then detached from the pacemaker. At this point, Dr. Sotelo, repositioned the lead appropriately in the ventricle. Once the lead was noted to be functioning appropriately, then it was reattached to the pacemaker. This was sutured into place with interrupted 0 Ti-Cron. The pacemaker and leads were then placed back into subcutaneous pouch and sutured down to the pectoral fascia using a single interrupted 0 Ti-Cron. We irrigated out the wound with antibiotic solution and then reapproximated the subcutaneous tissues with interrupted 3-0 Vicryls. The skin was closed with running subcutaneous 5-0 Monocryl and dressed appropriately. COMPLICATIONS: None. CONDITION: Stable. ANESTHESIA: Local MAC. BLOOD LOSS: Minimal. TRANSINT:[id number] Voice Confirmation ID: [id number] DOCUMENT ID: [id number] OPERATIVE REPORT [id number] GUS MCCONNELL GABRIEL JACOB MD at 0916 CC: [id number] DICTATION DATE: 02/02/18 143 WHEEL ROLLER: 02/02/18 1622 DEP CLI 02/02/[address] [address]
--- NOTE | ~2018-02-02 | OP ---
PATIENT NAME: GUS MORROW MEDICAL RECORD: [id number] :49 LOCATION:D.CAT ADMISSION DATE: SURGEON: RICHMOND MARSHALL MD DATE OF OPERATION: 02/02/2018 PROCEDURE: Ventricular lead revision INDICATION: Ventricular lead dislodgement. DESCRIPTION OF PROCEDURE: After the previous pocket was opened via Dr. Stevenson, the RV lead was pulled back to reposition the RV outflow tract then retracted into the RV apex. After adequate R waves and thresholds were obtained, the lead was reattached to the pole in the generator. The pocket was closed via Dr. Stevenson. IMPRESSION:. Successful lead revision of ventricular lead on Gus Morrow. COMPLICATIONS: None. ESTIMATED BLOOD LOSS: Minimal. DISPOSITION: To the floor, stable. TRANSINT:[id number] Voice Confirmation ID: [id number] DOCUMENT ID: [id number] RICHMOND MARSHALL MD at 1418 CC: [id number] DICTATION DATE: 02/02/18 1430 ELECTRON GUN INSPECTOR: 02/02/18 1443 DEP CLI 02/02/18 [facility] [address] [place] [address]
[~2018-02-02 10:45] MED LIST: CYMBALTA20 MG PO; CYMBALTA60 MG PO; FLOMAX0.4 MG PO; LIPITOR10 MG PO; PRAVACHOL20 MG PO; PROTONIX40 MG PO
[2018-02-02 11:11] VITALS: BP 145/71; Ht 182.9 cm; Wt 92.7 kg
[2018-02-02 11:36] LABS: HEMATOCRIT 46.6 % (42.0-54.0); HEMOGLOBIN 15.9 g/dL (13.5-17.5); MCH 31.5 pg (26.0-34.0); MCHC 34.1 g/dL (31.0-37.0); MCV 92.5 fL (80.0-100.0); MEAN PLATELET VOLUME 9.2 fL (7.4-10.4); RBC 5.04 10x6/uL (4.20-6.10); RDW 14.2 % (11.5-14.5); WBC 6.6 10x3/uL (4.8-10.8)
[2018-02-02 11:45] LABS: CALC OSMOLALITY 277 mosm/kg (275-300); CALCIUM 8.6 mg/dL (8.5-10.1); CHLORIDE - SERUM 103 mmol/L (98-107); CREATININE - SERUM 0.9 mg/dL (0.6-1.3); GLUCOSE 104 mg/dL (74-106); POTASSIUM - SERUM 4.3 mmol/L (3.5-5.1); SODIUM 139 mmol/L (136-145); UREA NITROGEN 12 mg/dL (7-18); eGFR NON AFRICAN AMERICAN 89 mL/min (90-120)
[2018-02-02 12:24] LABS: APTT 28.9 SECONDS (22.8-39.4); INR 1.1 (0.85-1.17); PROTIME 13.8 SECONDS (11.6-15.0)
== END 2018-02-02 16:15 | disposition home or self-care (01) ==
LOC: D.CATH 10:45
PROVIDERS: Internal Medicine Interventional Cardiology
DX: T82.120A Displacement of cardiac electrode, initial encounter (principal)